=== PATIENT | male | born 1980 | race Caucasian/White ===

== ENCOUNTER 2017-12-12 13:07 | Emergency (ER) | payer OTHER ==
[~2017-12-12 13:07] MED LIST: AMLO5 PO; CITA40 PO; GABA300 PO; QUET200 PO; SIMV20TA PO
[2017-12-12 13:09] VITALS: BP 170/99; PULSE 71; RESP 14; TEMP 98.2; O2SAT 95
[2017-12-12] MEDS ORDERED: ORPHENADRINE INJ 60 MG/2 ML AMP IM ONE (15:15)
[2017-12-12] MEDS ORDERED: KETOROLAC TROMETHAMINE 60 MG/2 ML (IM) VIAL IM ONE (15:15)
[2017-12-12] MEDS ORDERED: ROBA500T PO (15:45)
[2017-12-12] MEDS ORDERED: DICL75TA PO (15:45)
--- NOTE | 2017-12-12 15:50 | PD ---
HPI Chief Complaint: Back/ Neck Pain or Injury Time Seen by Provider: 15:07 Travel History International Travel<30 days: No Contact w/Intl Traveler<30days: No Traveled to known affect area: No History of Present Illness HPI 37-year-old male that presents to the ED for evaluation of back pain. Happened today while at work. Carrying a box of paper towels. Alexis pain 4/10 on the lumbar spine. Previous injury but nothing chronic per patient. No numbness, tingling, weakness. No prior surgeries or fractures to the back. Just injury from carrying heavy objects before. Pain started today while at work. No other injuries reported. No urinary or BM issues. Pain worst with movement. PFSH Past Medical History Anxiety: Yes Depression: Yes Heart Rhythm Problems: No Cardiovascular Problems: Yes (HTN, cholesterol) High Cholesterol: Yes Chest Pain: No Congestive Heart Failure: No Diminished Hearing: No Endocrine: No Genitourinary: No Hypertension: Yes Immune Disorder: No Musculoskeletal: No Neurologic: No Reproductive: No Respiratory: No Immunizations Current: Yes Past Surgical History Other Surgery: Yes (CYST TO TAILBONE) Social History Alcohol Use: Yes Tobacco Use: No Substance Use: No Allergies-Medications (Allergen,Severity, Reaction): Coded Allergies: bupropion (Unverified Allergy, Severe, 12/12/17) Uncoded Allergies: WELBUTRIN (Adverse Reaction, Severe, 04/17/12) Reported Meds & Prescriptions Reported Meds & Active Scripts Active Norvasc (Amlodipine Besylate) 5 Mg Tab 5 Mg PO DAILY 30 Days Quetiapine Fumarate 200 Mg Tab 200 Mg PO HS 30 Days Celexa 40 Mg Tab (Citalopram Hydrobromide) 40 Mg Tab 40 Mg PO DAILY 30 Days Reported Simvastatin 20 Mg Tab 10 Mg PO HS Review of Systems Except as stated in HPI: all other systems reviewed are Neg Physical Exam Narrative GENERAL: SKIN: Warm and dry. HEAD: Atraumatic. Normocephalic. EYES: Pupils equal and round. No scleral icterus. No injection or drainage. ENT: No nasal bleeding or discharge. Mucous membranes pink and moist. NECK: Trachea midline. No JVD. CARDIOVASCULAR: Regular rate and rhythm. RESPIRATORY: No accessory muscle use. Clear to auscultation. Breath sounds equal bilaterally. GASTROINTESTINAL: Abdomen soft, non-tender, nondistended. Hepatic and splenic margins not palpable. MUSCULOSKELETAL: Extremities without clubbing, cyanosis, or edema. No obvious deformities. No thoracic, cervical spine tenderness to palpation. Some lumbar spine tenderness noted. Straight leg test negative. 2+ pulses bilaterally. 5/5 strenght. gait normal. Neurovascularly intact. Pain with bending of the back. NEUROLOGICAL: Awake and alert. No obvious cranial nerve deficits. Motor grossly within normal limits. Five out of 5 muscle strength in the arms and legs. Normal speech. PSYCHIATRIC: Appropriate mood and affect; insight and judgment normal. Data Data Last Documented VS Vital Signs Date Time Temp Pulse Resp B/P (MAP) Pulse Ox O2 Delivery O2 Flow Rate FiO2 12/12/17 13:09 98.2 71 14 170/99 (122) 95 Orders Orders Spine, Lumbar Comp W/Obliq (12/12/17 15:11) Ketorolac Inj (Toradol Inj) (12/12/17 15:15) Orphenadrine Inj (Norflex Inj) (12/12/17 15:15) MDM Medical Decision Making Medical Screen Exam Complete: Yes Emergency Medical Condition: Yes Medical Record Reviewed: Yes Interpretation(s) xray of lumbar spine negative Differential Diagnosis fracture vs sprain vs strain Narrative Course 37 yo male here for back pain. Properly examined and found to have muscle strain. xray done and did not showed bony injury. Will treat with IM dose of toradol and norlfex. Patient agrees with plan and better. Given prescriptions for robaxin and diclofenac sodium. Note given for work. Ice or heat. F/u with PCP. See ED if worst. Diagnosis Primary Impression: Lumbar strain Qualified Codes: S39.012A - Strain of muscle, fascia and tendon of lower back , initial encounter Patient Instructions: General Instructions Additional Instructions: Take medications as prescribed. Follow-up with PCP. See ED for any worsening symptoms. Do not drink or drive while taking pain medication. Apply ice or heat as needed for pain Med/Other Pt SpecificInfo: Prescription(s) given Scripts Methocarbamol (Robaxin) 500 Mg Tab 500 MG PO QID for Muscle Spasm, #14 TAB 0 Refills Prov: Erasmo Becerril MD 12/12/[address] (Diclofenac Sodium DR) 75 Mg Tabdr 75 MG PO BID Y for PAIN SCALE 1 TO 10, #20 TAB 0 Refills Prov: Erasmo Becerril MD 12/12/17 Disposition: 01 DISCHARGE HOME Condition: Ovidio Dasilva Dec 12, 2017 15:50
--- NOTE | 2017-12-12 16:34 | RADRPT ---
EXAM DATE/TIME: 12/12/2017 15:26 [facility] COMPARISON: No previous studies available for comparison. INDICATIONS : Lower back pain. Patient states he threw his back out at work today. MEDICAL HISTORY : None. SURGICAL HISTORY : Cyst removal on coccyx. ENCOUNTER: Initial ACUITY: 1 day PAIN SCORE: 8/10 LOCATION: lumbar spine. FINDINGS: Minimal loss of disc space height L5-S1 without significant degenerative changes. The preservation o f body heights. Anatomic alignment. CONCLUSION: Minimal loss of disc space height L5-S1. Luca Fontaine MD FACR on December 12, 2017 at 16:31 Board Certified Radiologist. This report was verified electronically.
== END 2017-12-12 16:12 | disposition home or self-care (01) ==
LOC: NEPK 13:07
DX: S39.012A Strain of muscle, fascia and tendon of lower back, initial encounter (principal); I10 Essential (primary) hypertension; E78.00 Pure hypercholesterolemia, unspecified; F32.9 Major depressive disorder, single episode, unspecified
CPT/HCPCS: 72110; 96372; 99283; J1885; J2360